=== PATIENT | male | born 1965 | race Caucasian/White ===

== ENCOUNTER 2016-08-13 20:49 | Emergency (ER) | payer MEDICAID ==
[2016-08-13 20:58] VITALS: RESP 16
[2016-08-13 21:31] LABS: % IMMATURE GRANULYOCYTES 0.4 % (0.0-1.1); ABSOLUTE IMMATURE GRANULOCYTES 0.06 10^3/uL (0.00-0.10); ADD DIFF? NO; ADD MORPH? NO; ADD SCAN? NO; ATYPICAL LYMPHOCYTE FLAG 10 (0-99); FRAGMENT RBC FLAG 0 (0-99); HEMATOCRIT 42.4 % (40.0-51.0); LEFT SHIFT FLG 0 (0-99); LIPEMIA HEMOLYSIS FLAG 90 (0-99); MEAN CELL HEMOGLOBIN 32.5 pg (27.9-34.1); MEAN CELL HEMOGLOBIN CONCENTR. 35.4 g/dL (32.4-36.7); MEAN CELL VOLUME 91.8 fL (81.5-99.8); MEAN PLATELET VOLUME 8.9 fL (8.7-11.7); PLATELET CLUMPS FLAG 0 (0-99); PLATELET COUNT 283 10^3/uL (150-400); RED BLOOD CELL COUNT 4.62 10^6/uL (4.40-6.38); RED CELL DISTRIBUTION WIDTH 11.9 % (11.5-15.2)
[2016-08-13 21:45] LABS: ANION GAP 12 mEq/L (8-16); CALCIUM 9.7 mg/dL (8.5-10.4); CARBON DIOXIDE 24 mEq/l (22-31); CHLORIDE 105 mEq/L (97-110); CREATININE 0.8 mg/dL (0.7-1.3); ETHANOL SERUM < 10 mg/dL (0-10); GLOMERULAR FILTRATION RATE > 60; GLUCOSE 123 mg/dL (70-100); POTASSIUM 3.7 mEq/L (3.5-5.2); SODIUM 141 mEq/L (134-144)
--- NOTE | 2016-08-13 22:55 | EDPHY ---
Mental Health General Smoking Status: Heavy smoker Time Patient Placed on M1 Hold: 18:34 Narrative: The patient was evaluated and managed by the physician's assistant professor of biochemistry. My cosignature indicates that I reviewed the chart and I agree with the findings and plan of care as documented. I am the secondary supervising physician. ( Alysia Prescott) CHIEF COMPLAINT: M1 hold HISTORY OF PRESENT ILLNESS: 50-year-old male brought in to the emergency department by police [facility]. Police were called to the sn[facility] for a individual threatening homicide as he was angry that he was not chosen into this summer bed program at the snf. Patient's ex-girlfriend reported he made homicidal statements. On arrival to the emergency department the patient denies homicidal ideations, suicidal ideations, auditory or visual hallucinations. He denies drug or alcohol use other than marijuana. REVIEW OF SYSTEMS: A comprehensive 10 point review of systems is otherwise negative aside from elements mentioned in the history of present illness. Physical Exam Gen: Alert and Oriented, NAD HEENT: PERRL, moist mucous membranes NECK: no meningismus CV: regular rate and regular rhythm PULM: CTAB, no wheezes ABDOMEN: soft, non tender to palpation, BS present BACK: No CVA tenderness NEURO: Neurologically grossly intact EXTREMITIES: normal appearing SKIN: no rash or break in skin on exposed skin PSYCH: answers questions appropriately. (Madie Watkins) Medical Decision Making: During my exam the patient he reported that he was refusing to give a urine sample because he did not want to get kicked out of the emergency department at 2:00 a.m.. He states it is cold and rainy outside. Patient denies suicidal ideations, homicidal ideations auditory and visual hallucinations. 72 hold was terminated and patient is discharged to [facility]. (Madie Watkins) - Objective Vital Signs: Initial Vital Signs Temperature (C) 36.8 C 08/13/16 20:52 Heart Rate 100 08/13/16 20:52 Respiratory Rate 16 08/13/16 20:52 O2 Sat (%) 94 08/13/16 20:52 O2 Delivery Mode Room Air Allergies/Adverse Reactions: No Known Allergies Allergy (Unverified 08/13/16 20:50) Home Medications: Medication Instructions Recorded NK [No Known Home Meds] 08/13/16 Laboratory Results: Laboratory Results 08/13/16 21:22 08/13/16 21:22 08/13/16 08/13/16 21:22 21:22 WBC 16.92 10^3/uL H 10^3/uL (3.80-9.50) RBC 4.62 10^6/uL 10^6/uL (4.40-6.38) Hgb 15.0 g/dL g/dL (13.7-17.5) Hct 42.4 % % (40.0-51.0) MCV 91.8 fL fL (81.5-99.8) MCH 32.5 pg pg (27.9-34.1) MCHC 35.4 g/dL g/dL (32.4-36.7) RDW 11.9 % % (11.5-15.2) Plt Count 283 10^3/uL 10^3/uL (150-400) MPV 8.9 fL fL (8.7-11.7) Neut % (Auto) 70.8 % % (39.3-74.2) Lymph % (Auto) 19.3 % % (15.0-45.0) [place] % (Auto) 8.6 % % (4.5-13.0) Eos % (Auto) 0.2 % L % (0.6-7.6) Baso % (Auto) 0.7 % % (0.3-1.7) Nucleat RBC Rel Count 0.0 % % (0.0-0.2) Absolute Neuts (auto) 11.98 10^3/uL H 10^3/uL (1.70-6.50) Absolute Lymphs (auto) 3.27 10^3/uL H 10^3/uL (1.00-3.00) Absolute Monos (auto) 1.45 10^3/uL H 10^3/uL (0.30-0.80) Absolute Eos (auto) 0.04 10^3/uL 10^3/uL (0.03-0.40) Absolute Basos (auto) 0.12 10^3/uL H 10^3/uL (0.02-0.10) Absolute Nucleated RBC 0.00 10^3/uL 10^3/uL (0-0.01) Immature Gran % 0.4 % % (0.0-1.1) Immature Gran # 0.06 10^3/uL 10^3/uL (0.00-0.10) Sodium 141 mEq/L mEq/L (134-144) Potassium 3.7 mEq/L mEq/L (3.5-5.2) Chloride 105 mEq/L mEq/L (97-110) Carbon Dioxide 24 mEq/l mEq/l (22-31) Anion Gap 12 mEq/L mEq/L (8-16) BUN 12 mg/dL mg/dL (7-23) Creatinine 0.8 mg/dL mg/dL (0.7-1.3) Estimated GFR > 60 Glucose 123 mg/dL H mg/dL (70-100) Calcium 9.7 mg/dL mg/dL (8.5-10.4) Ethyl Alcohol < 10 mg/dL mg/dL (0-10) Departure - Departure Disposition: Home, Routine, Self-Care Clinical Impression: Homelessness Condition: Good Instructions: Mental Health [facility] Additional Instructions: 1. [facility] does operate a 20/10 psychiatric crisis unit located at [address] [place] [address]. The telephone number for the 24 hour crisis center is [phone]. 2. Please return to the ED if you are feeling suicidal, having thoughts of harming yourself/others or should you feel unsafe or have worsening symptoms. Referrals: [facility],. [Clinic] - As per Instructions
[2016-08-13 23:22] VITALS: BP 153/66; PULSE 74; TEMP 97.9; O2SAT 92
== END 2016-08-13 23:21 | disposition home or self-care (01) ==
DX: Z59.0 Homelessness (principal); F17.200 Nicotine dependence, unspecified, uncomplicated
CPT/HCPCS: G0480